=== PATIENT | male | born 1990 | race African-American/Black ===

== ENCOUNTER 2016-08-11 10:21 | Emergency (ER) | payer SELFPAY ==
[~2016-08-11] VITALS: Ht 182.9 cm; Wt 101.4 kg
[2016-08-11 10:26] VITALS: TEMP 36.6; Ht 182.9 cm; Wt 101.4 kg
[2016-08-11] MEDS ORDERED: IBUPROFEN 600 MG TAB PO STA (10:41)
--- NOTE | 2016-08-11 11:19 | DIAGNOSTIC IMAGING REPORT ---
RIGHT KNEE 4 VIEWS CLINICAL HISTORY: Knee pain. Patellar subluxation. COMPARISON: None. DISCUSSION: No acute fractures or dislocations are visualized. There is no radiographic evidence of a joint effusion. ] Densities projected over the lateral femoral condyle on the AP view are felt to be artifactual. IMPRESSION: Unremarkable conventional radiographic evaluation of the right knee Electronically signed by: Darrion Forbes M.D. 08/11/2016 11:17 AM Dictated Date/Time: 08/11/2016 11:16 AM
--- NOTE | 2016-08-11 11:51 | EMERGENCY ROOM VISIT NOTE ---
ED Visit Note First contact with patient: 10:28 CHIEF COMPLAINT: Right knee injury 2 hours ago HISTORY OF PRESENT ILLNESS: Patient is a 26-year-old -[place] male who presents emergency department for evaluation of right knee pain after an injury 2 hours ago. 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 He reports that about 2 hours ago they were out for run. He states that the path was slightly uneven, and at one point while running, he went off of the [place] slightly, the right knee twisted, and he felt his kneecap pop out of place. He describes it moving laterally. He stopped, took a few steps, and reports that he slid the patella back into position. He continued to run the remainder of the loop, then stopped. He is able to walk and bear weight, but it is painful and he has been limping. He reports a history of a similar injury was 2 years ago, but never had it evaluated medically. He complains of pain in the anterior aspect of the knee presently. Rates his discomfort a 5/10. He did not take any medications, nor perform any intervention for his symptoms. REVIEW OF SYSTEMS: Review of systems as per HPI. All other systems reviewed were negative. At least 6 systems reviewed. PMH: Patient is otherwise healthy without any chronic medical problems or major surgeries. SOCIAL HISTORY: Patient lives at home with his aunt near [place]. Nonsmoker. Is employed. PHYSICAL EXAM: Vital Signs: Reviewed Nurse's notes. MENTAL STATUS: Well- appearing 26-year-old male who is awake and alert and in no acute distress. KNEE: Examination of the right knee does not demonstrate any obvious deformity. No significant soft tissue swelling or joint effusion is appreciated. He is tender over the entire anterior portion of the knee, particularly in the peripatellar region. There is no crepitus or gross instability appreciated. He has slight discomfort along the medial joint line and over the medial retinaculum. No pain or fullness in the popliteal space. He can extend fully, flexes greater than 90. Knee is stable to varus and valgus at 0 and 30. Anterior drawer and Dinorah with solid endpoint. Negative Garret's. Distal pulses are easily palpable. Sensation to light touch is intact. EMERGENCY DEPARTMENT COURSE: Ice pack was applied. Patient was medicated with ibuprofen for discomfort. Right knee x-rays were performed. X-ray findings were reviewed with the patient. He was wrapped with an alexandro wrap and given crutches. Conservative care measures were discussed. He appears to have suffered a patellar subluxation. Differential diagnoses entertained included sprain, dislocation, tendinous or ligamentous injury, meniscal tear, among others. He was advised to follow-up with orthopedics for further care and evaluation of his injury. He was advised to refrain from any running or rigorous physical exercise until he is seen and cleared by orthopedic to return. RIGHT KNEE 4 VIEWS CLINICAL HISTORY: Knee pain. Patellar subluxation. COMPARISON: None. DISCUSSION: No acute fractures or dislocations are visualized. There is no radiographic evidence of a joint effusion. ] Densities projected over the lateral femoral condyle on the AP view are felt to be artifactual. IMPRESSION: Unremarkable conventional radiographic evaluation of the right knee Current/Historical Medications No Active Prescriptions or Reported Meds Allergies Coded Allergies: No Known Allergies (Unverified , 08/11/16) Vital Signs Date Time Temp Pulse Resp B/P (MAP) Pulse Ox O2 Delivery O2 Flow Rate FiO2 08/11/16 12:08 66 17 141/77 99 Room Air 08/11/16 10:26 36.6 74 18 127/68 99 Room Air Medications Administered Medications (Trade) Dose Ordered Sig/Ying Route Start Time Stop Time Status Last Admin Dose Admin Ibuprofen (Motrin Tab) 600 mg NOW STAT PO 08/11/16 10:41 08/11/16 10:43 DC 08/11/16 10:48 600 MG Departure Information Impression Primary Impression: Right knee injury Prescriptions No Active Prescriptions or Reported Meds Referrals No Doctor, Assigned (PCP) Patient Instructions [facility] Additional Instructions Ibuprofen(Motrin, Advil) may be used for fever or pain. Use 600mg every six hours as needed. Take with food. Avoid using more than 2400mg in a 24 hour period. Do not use 2400mg per day for more than three consecutive days without physician direction. Prolonged inappropriate use can lead to stomach upset or ulcers. This medication can be taken if you need to drive, work, or perform activities which may be dangerous when taking narcotic pain medication. (AND/OR) Acetaminophen(Tylenol) may be used for fever or pain. Use 1000mg every six hours as needed. Avoid using more than 3000mg in a 24 hour period. This medication can be taken if you need to drive, work, or perform activities which may be dangerous when taking narcotic pain medication. Ice compresses for 20 minutes at a time four times daily for 2-3 days. Use the Alexandro wrap and crutches as instructed. Rest and elevate your injury. Continue current medications. Return to the ER immediately for any numbness, tingling, severe pain, extreme swelling in the extremity or as needed. Follow-up with orthopedics for further care and evaluation of your injury.
[2016-08-11 12:08] VITALS: BP 141/77; PULSE 66; O2SAT 99
== END 2016-08-11 12:20 | disposition home or self-care (01) ==
LOC: C.EDB 10:22 → C.EDA 12:20
DX: S89.91XA Unspecified injury of right lower leg, initial encounter (principal); X50.1XXA Overexertion from prolonged static or awkward postures, initial encounter; Y92.89 Other specified places as the place of occurrence of the external cause; Y93.89 Activity, other specified